=== PATIENT | female | born 1970 | race Caucasian/White ===

== ENCOUNTER 2017-11-11 21:26 | Emergency (ER) | payer OTHER, BC ==
[~2017-11-11] VITALS: Ht 157.5 cm; Wt 99.8 kg
[~2017-11-11 21:26] MED LIST: BCPs; CIPR500 PO; CITA20 PO; DULO30; ESCI10 PO; ESCI20; HYDACE5 PO; Keflex500 MG PO; NAPR500EC PO; OMEP20ER PO; PHENA200 PO; RISE5; SULTRIDS PO
[2017-11-11] MEDS ORDERED: LEVSOD75 PO (21:44)
[2017-11-11 22:14] LABS: Source, Urine Clean Catch
[2017-11-11 22:17] LABS: Bilirubin, Urine Neg (Neg); Blood, Urine 2+ (Neg); Glucose Qualitative, Urine Neg (Neg); Ketones, Urine 1+ (Neg); Leukocyte Esterase, Urine 1+ (Neg); Nitrite, Urine Neg (Neg); Protein, Urine 1+ (Neg); Urobilinogen, Urine 1+ (Normal)
[2017-11-11 22:20] LABS: Appearance, Urine Hazy (Clear); Color, Urine Yellow (P-Yellow)
[2017-11-11 22:27] LABS: White Blood Cells, Urine 50-100 /hpf (0-5)
[2017-11-11 22:28] LABS: Bacteria Few /hpf; Red Blood Cells, Urine 0-2 /hpf (0-2); Squamous Epithelial Cells Few /hpf (Few)
[2017-11-11] MEDS ORDERED: Cipro250 MG PO (22:52)
[2017-11-11] MEDS ORDERED: Pyridium100 MG PO (22:52)
== END 2017-11-11 22:58 | disposition home or self-care (01) ==
LOC: ER 21:26
PROVIDERS: Emergency Medicine
DX: N30.00 Acute cystitis without hematuria (principal); F32.9 Major depressive disorder, single episode, unspecified; Z88.0 Allergy status to penicillin; Z88.6 Allergy status to analgesic agent; Z88.1 Allergy status to other antibiotic agents; Z79.899 Other long term (current) drug therapy
CPT/HCPCS: 81001; 81025; 87077; 87086; 87186; 99283

== ENCOUNTER → 2018-03-26 | Outpatient (CLI) | payer OTHER ==
[~2018-03-26] MED LIST changes: +Cipro250 MG PO; +LEVSOD75 PO; +Pyridium100 MG PO
== END | disposition home or self-care (01) ==
LOC: LAB SHORT 18:44 → LAB EV 18:44
DX: N39.0 Urinary tract infection, site not specified (principal)
CPT/HCPCS: 87077; 87086; 87186

== ENCOUNTER 2018-11-14 11:50 | Emergency (ER) | payer OTHER ==
[~2018-11-14] VITALS: Ht 157.5 cm; Wt 95.2 kg
[2018-11-14 12:34] LABS: BASOPHILS ABSOLUTE AUTO 0.03 K/mm3 (0.00-0.23); BASOPHILS PERCENT AUTO 0 % (0-2); EOSINOPHILS ABSOLUTE AUTO 0.15 K/mm3 (0.00-0.68); EOSINOPHILS PERCENT AUTO 2 % (0-6); Hematocrit 38.1 % (33.0-51.0); Hemoglobin 12.5 g/dL (11.5-16.0); IMMATURE GRAN ABSOLUTE AUTO 0.03 K/mm3 (0.00-0.10); IMMATURE GRAN PERCENT AUTO 0 % (0-1); LYMPHOCYTES ABSOLUTE AUTO 2.66 K/mm3 (0.84-5.20); LYMPHOCYTES PERCENT AUTO 36 % (21-46); MONOCYTES ABSOLUTE AUTO 0.49 K/mm3 (0.16-1.47); MONOCYTES PERCENT AUTO 7 % (4-13); Mean Corpuscular HGB 29.1 pg (26.0-34.0); Mean Corpuscular HGB Conc 32.8 g/dL (31.5-36.5); Mean Corpuscular Volume 89 fL (80-100); Mean Platelet Volume 9.9 fL (9.1-12.4); NEUTROPHILS ABSOLUTE AUTO 4.11 K/mm3 (1.96-9.15); NEUTROPHILS PERCENT AUTO 55 % (41-73); Platelet Count 240 K/mm3 (150-400); RDW Coefficient Variation 13.3 % (11.7-14.2); Red Blood Cell Count 4.29 M/mm3 (3.80-5.20); White Blood Cell Count 7.47 K/mm3 (4.00-11.30)
[2018-11-14 13:10] LABS: Alanine Aminotransfer (ALT/SGP 58 U/L (12-78); Albumin, Blood 3.7 g/dL (3.4-5.0); Albumin/Globulin Ratio 1.1 (0.8-1.8); Alk Phos 92 U/L (50-136); Anion Gap 6 mmol/L (6-16); Aspartate Aminotrans (AST/SGOT 29 U/L (12-37); Bilirubin, Total 0.2 mg/dL (0.1-1.0); Blood Urea Nitrogen 10 mg/dL (8-24); CO2, Blood 26 mmol/L (21-32); Calcium, Blood 8.2 mg/dL (8.5-10.1); Chloride, Blood 110 mmol/L (98-108); Creatinine, Blood 0.59 mg/dL (0.40-1.00); Globulin, Blood 3.5 g/dL (2.2-4.0); Glomerular Filtration Rate >60 (60-); Glucose, Blood 76 mg/dL (70-99); Potassium, Blood 3.6 mmol/L (3.5-5.5); Sodium, Blood 142 mmol/L (136-145); Total Protein, Blood 7.2 g/dL (6.4-8.2); Troponin I <0.015 ng/mL (0.000-0.040)
== END 2018-11-14 16:28 | disposition home or self-care (01) ==
LOC: ER 11:50
PROVIDERS: Emergency Medicine
DX: R07.89 Other chest pain (principal); L50.9 Urticaria, unspecified; F32.9 Major depressive disorder, single episode, unspecified; Z88.0 Allergy status to penicillin; Z88.8 Allergy status to other drugs, medicaments and biological substances; Z88.1 Allergy status to other antibiotic agents; Z79.899 Other long term (current) drug therapy
CPT/HCPCS: 36415; 71046; 80053; 83690; 84484; 85025; 93005; 93010; 99284-25

== ENCOUNTER → 2018-12-15 | Outpatient (CLI) | payer OTHER | END | disposition home or self-care (01) | LOC: LAB EV 16:15 → LAB SHORT 16:15 | DX: N39.0 Urinary tract infection, site not specified (principal) | CPT/HCPCS: 87077; 87086; 87186 ==

== ENCOUNTER 2020-01-21 09:23 | Day surgery (SDC) | payer OTHER ==
[~2020-01-21] VITALS: Ht 157.5 cm; Wt 96.8 kg
[~2020-01-21 09:23] MED LIST changes: +METF500 PO
--- NOTE | 2020-01-21 12:46 | NUR ---
01/21/20 1246 Bharti Gonzalez LATE ENTRY: INCOMPLETE COLONOSCOPY DUE TO POOR PREP.
== END 2020-01-21 11:32 | disposition home or self-care (01) ==
LOC: ORSCSDS 09:23
PROVIDERS: Internal Medicine Gastroenterology
PROC: 0DJD8ZZ Inspection of Lower Intestinal Tract, Via Natural or Artificial Opening Endoscopic (ICD-10-PCS; principal; 2020-01-21 10:45)
DX: Z12.11 Encounter for screening for malignant neoplasm of colon (principal); F32.9 Major depressive disorder, single episode, unspecified; Z79.899 Other long term (current) drug therapy
CPT/HCPCS: 82947; J2405; J2704; J7120

== ENCOUNTER 2020-02-14 16:22 | Emergency (ER) | payer OTHER ==
[~2020-02-14] VITALS: Ht 157.5 cm; Wt 99.8 kg
[2020-02-14 16:55] LABS: BASOPHILS ABSOLUTE AUTO 0.03 K/mm3 (0.00-0.23); BASOPHILS PERCENT AUTO 0 % (0-2); EOSINOPHILS ABSOLUTE AUTO 0.11 K/mm3 (0.00-0.68); EOSINOPHILS PERCENT AUTO 1 % (0-6); Hemoglobin 12.7 g/dL (11.5-16.0); IMMATURE GRAN ABSOLUTE AUTO 0.02 K/mm3 (0.00-0.10); IMMATURE GRAN PERCENT AUTO 0 % (0-1); LYMPHOCYTES PERCENT AUTO 34 % (21-46); MONOCYTES ABSOLUTE AUTO 0.56 K/mm3 (0.16-1.47); MONOCYTES PERCENT AUTO 7 % (4-13); Mean Corpuscular HGB 28.9 pg (26.0-34.0); Mean Corpuscular HGB Conc 32.6 g/dL (31.5-36.5); Mean Corpuscular Volume 89 fL (80-100); Mean Platelet Volume 9.8 fL (9.1-12.4); NEUTROPHILS ABSOLUTE AUTO 4.71 K/mm3 (1.96-9.15); NEUTROPHILS PERCENT AUTO 57 % (41-73); NRBC ABSOLUTE 0.02 K/mm3 (0.00-0.02); NRBC Auto 0.2 /100 WBC (0.0-0.2); Platelet Count 364 K/mm3 (150-400); RDW Coefficient Variation 13.3 % (11.7-14.2); RDW Standard Deviation 43.4 fL (35.1-46.3); Red Blood Cell Count 4.39 M/mm3 (3.80-5.20); White Blood Cell Count 8.23 K/mm3 (4.00-11.30)
[2020-02-14 17:11] LABS: Alanine Aminotransfer (ALT/SGP 80 U/L (12-78); Albumin, Blood 3.9 g/dL (3.4-5.0); Albumin/Globulin Ratio 1.1 (0.8-1.8); Alk Phos 89 U/L (50-136); Anion Gap 8 mmol/L (6-16); Aspartate Aminotrans (AST/SGOT 48 U/L (12-37); Bilirubin, Total 0.5 mg/dL (0.1-1.0); Blood Urea Nitrogen 9 mg/dL (8-24); Bun/Creatinine Ratio 14.5 (12.0-20.0); CO2, Blood 23 mmol/L (21-32); Chloride, Blood 106 mmol/L (98-108); Creatinine, Blood 0.62 mg/dL (0.40-1.00); Globulin, Blood 3.7 g/dL (2.2-4.0); Glomerular Filtration Rate >60 (60-); Glucose, Blood 88 mg/dL (70-99); Potassium, Blood 3.8 mmol/L (3.5-5.5); Sodium, Blood 137 mmol/L (136-145); Total Protein, Blood 7.6 g/dL (6.4-8.2)
[2020-02-14 17:38] LABS: Source, Urine Clean Catch
[2020-02-14 17:43] LABS: Appearance, Urine Hazy (Clear); Bilirubin, Urine Neg (Neg); Blood, Urine Neg (Neg); Color, Urine Yellow (P-Yellow); Glucose Qualitative, Urine Neg (Neg); Ketones, Urine 2+ (Neg); Leukocyte Esterase, Urine Neg (Neg); Nitrite, Urine Neg (Neg); Protein, Urine Neg (Neg); Specific Gravity, Urine 1.005 (1.003-1.022); Urobilinogen, Urine NORM (Normal)
[2020-02-14 17:52] LABS: Bacteria Rare /hpf; Red Blood Cells, Urine 0-2 /hpf (0-2); Squamous Epithelial Cells Many /hpf (Few); White Blood Cells, Urine 0-2 /hpf (0-5)
[2020-02-14] MEDS ORDERED: PROG100 PO (18:16)
[2020-02-14] MEDS ORDERED: Nitrofurantoin100 M1 PO (18:16)
[2020-02-14] MEDS ORDERED: SPIRONOLACTONE50 MG PO (18:16)
[2020-02-14] MEDS ORDERED: METF500 (18:17)
[2020-02-14] MEDS ORDERED: LEVO-T88 MC1 PO (18:18)
[2020-02-14] MEDS ORDERED: CITALOPRAM HBR20 MG PO (18:18)
== END 2020-02-14 22:32 | disposition home or self-care (01) ==
LOC: ER 16:22
PROVIDERS: Physician Assistant
DX: K43.9 Ventral hernia without obstruction or gangrene (principal); R94.5 Abnormal results of liver function studies; K80.80 Other cholelithiasis without obstruction; F32.9 Major depressive disorder, single episode, unspecified; Z88.0 Allergy status to penicillin; Z88.8 Allergy status to other drugs, medicaments and biological substances; Z79.84 Long term (current) use of oral hypoglycemic drugs; Z79.899 Other long term (current) drug therapy
CPT/HCPCS: 36415; 74177; 76705; 80053; 81001; 83605; 83690; 85025; 96360-59; 96361-59; 99284-25; J7030; Q9967

== ENCOUNTER 2020-03-25 06:59 | Day surgery (SDC) | payer OTHER ==
[~2020-03-25] VITALS: Ht 157.5 cm; Wt 96.2 kg
[~2020-03-25 06:59] MED LIST changes: +CITALOPRAM HBR20 MG PO; +Estrace Vagin42.5 GM VAG; +LEVO-T88 MC1 PO; +NITR100CA PO; +Nitrofurantoin100 M1 PO; +PROG100 PO; +SPIRONOLACTONE50 MG PO
--- NOTE | 2020-03-25 08:30 | NUR ---
Ambulatory in Day Surgery History, Chart, Medications and Allergies reviewed before start of procedure. Lungs clear T/O to Auscultation. Pre-Op teaching done. Pt verbalizes understanding.
--- NOTE | 2020-03-25 11:54 | NUR ---
ASSUMED CARE AND RECEIVED REPORT FROM PADMINI JUAREZ RN. PT AWAKE AND ORIENTED. PAINFUL. GAVE ANOTHER PERCOCET. Discharge instructions reviewed with patient. Patient verbalizes understanding. Copy given to patient to take home. procedure site clean, dry, intact with no visible drainage, swelling, erythema or bruising noted.
--- NOTE | 2020-03-25 12:33 | NUR ---
Discharged via wheelchair to private car for ride home. Patient States Post-Procedure ride home has been arranged. ALL BELONINGS RETURNED TO PATIENT. INCISION REMAINED CDI. PT RECEIVED TWO PAIN PILLS.
== END 2020-03-25 22:47 | disposition home or self-care (01) ==
LOC: ORSCMMR 06:59 → ORD 08:30 → ORSCMMR 08:30
PROVIDERS: Surgery
PROC: 0WUF4JZ Supplement Abdominal Wall with Synthetic Substitute, Percutaneous Endoscopic Approach (ICD-10-PCS; principal; 2020-03-25 08:30)
DX: K42.9 Umbilical hernia without obstruction or gangrene (principal); K21.9 Gastro-esophageal reflux disease without esophagitis; E66.01 Morbid (severe) obesity due to excess calories; Z68.38 Body mass index [BMI] 38.0-38.9, adult; E03.9 Hypothyroidism, unspecified; Z79.899 Other long term (current) drug therapy
CPT/HCPCS: 82947; A9270; C1781; J0330; J0690; J2250; J2405; J2710; J3010; J7120

== ENCOUNTER 2024-03-26 06:11 | Day surgery (SDC) | payer OTHER ==
[~2024-03-26] VITALS: Ht 157.5 cm; Wt 97.6 kg
[2024-03-26] VITALS (17 sets, daily range): BP systolic 67–119; BP diastolic 31–79
[~2024-03-26 06:11] MED LIST changes: +CLIMARA1 EACH TOP
[2024-03-26] MEDS ORDERED: Ropivacaine 0.5% HCl/Pf 123.125 MG,EPINEPHrine HCL 0.25 MG,Ketorolac Tromethamine 15 MG... INFIL SCH (06:20)
[2024-03-26] MEDS ORDERED: Tranexamic Acid 100 ML IV SCH (06:20)
[2024-03-26] MEDS ORDERED: Chlorhexidine Mouth Care 15 ML UDC MT SCH (06:20)
[2024-03-26] MEDS ORDERED: CeFAZolin Sodium 2,000 MG in NS 100 ML IV SCH ×2 (06:20→16:00)
[2024-03-26] MEDS ORDERED: Lactated Ringer's 1,000 ML IV SCH ×2 (06:20→09:45)
[2024-03-26] MEDS ORDERED: Acetaminophen 500 MG Tab PO SCH ×2 (06:20→16:00)
[2024-03-26] MEDS ORDERED: OxyCODONE HCL 10 MG TABCR PO SCH (06:20)
[2024-03-26] MEDS ORDERED: Midazolam HCl 1MG / ML 2ML Vial ONE (06:46)
[2024-03-26] MEDS ORDERED: propofoL 60 ML IV ONE (06:46)
[2024-03-26] MEDS ORDERED: FentaNYL Citrate 50 MCG/ML 2 ML Injection ONE (06:46)
[2024-03-26] MEDS ORDERED: CeFAZolin Sodium 2,000 MG VIAL ONE (06:57)
--- NOTE | 2024-03-26 07:12 | NUR ---
History, Chart, Medications and Allergies reviewed before start of procedure. Pre-Op teaching done. Pt verbalizes understanding. Patient confirms NPO status and agrees with scheduled surgery. PT GAVE BELONGINGS BAG TO SPOUSE, PAUL, AT BS.
[2024-03-26] MEDS ORDERED: ePHEDrine Sulfate 50 MG/ML 1ML Injection ONE (07:43)
[2024-03-26] MEDS ORDERED: Glycopyrrolate 0.2 MG/ML 5ML VIAL ONE (07:53)
--- NOTE | 2024-03-26 08:13 | NUR ---
03/26/24 0813 Miguelina Linn SPINAL BLOCK COMPLETED BY UPON ENTRY TO OR.
[2024-03-26] MEDS ORDERED: propofoL 20 ML IV ONE (08:52)
[2024-03-26] MEDS ORDERED: Nitrofurantoin/Nitrofuran Mac 100 MG Cap PO PRN (09:30)
[2024-03-26] MEDS ORDERED: DiphenhydrAMINE HCL 25 MG Cap PO PRN (09:35)
[2024-03-26] MEDS ORDERED: FLU VACC TS2024-25(6MOS UP)/PF 45 MCG/0.5 ML SYRINGE IM SCH (09:35)
[2024-03-26] MEDS ORDERED: Promethazine HCl 25 MG Tab PO PRN (09:35)
[2024-03-26] MEDS ORDERED: HYDROmorphone HCl/Pf 1MG SYR IV PRN (09:35)
[2024-03-26] MEDS ORDERED: Bisacodyl 10 MG Supp PR PRN (09:35)
[2024-03-26] MEDS ORDERED: Metoclopramide HCl 5MG / ML 2ML Vial IV PRN (09:40)
[2024-03-26] MEDS ORDERED: OxyCODONE HCL 5 MG TAB PO PRN ×2 (09:40)
[2024-03-26] MEDS ORDERED: Prochlorperazine Edisylate 10 mg Vial IV PRN (09:40)
[2024-03-26] MEDS ORDERED: Ondansetron HCl 2 MG / ML 2ML Vial IV PRN (09:40)
[2024-03-26] MEDS ORDERED: Magnesium Hydroxide Conc 10 ML UDC PO PRN (09:45)
[2024-03-26] MEDS ORDERED: Insulin Regular 100 UNIT/ML 10ML Vial SC SCH (11:30)
[2024-03-26] MEDS ORDERED: Ketorolac Tromethamine 15mg Vial IV SCH (12:00)
[2024-03-26] MEDS ORDERED: Omeprazole 20 MG CapCR PO ONE (13:50)
[2024-03-26] MEDS ORDERED: MetFORMIN HCl 500 mg PO SCH (17:00)
--- NOTE | 2024-03-26 18:18 | NUR ---
SHIFT SUMMARY PT HAS DONE WELL POST OP. HAD ONE EPISODE OF DIZZINESS w/ HYPOTENSION ON FIRST AMBULATION TO BATHROOM BUT RECOVERED WELL. EATING, DRINKING, VOIDING, & WORKED w/ THERAPY. PAIN WELL CONTROLLED.
[2024-03-26] MEDS ORDERED: Docusate Sodium 100 MG Cap PO SCH (21:00)
[2024-03-26] MEDS ORDERED: Progesterone, Micronized 100 MG Cap PO SCH (21:00)
[2024-03-27 00:20] VITALS: BP 106/54
[2024-03-27 03:18] VITALS: BP 100/60
--- NOTE | 2024-03-27 04:44 | NUR ---
SHIFT SUMMARY POD 1 S/P RIGHT AIDEN. AQUACEL AND DARREL WRAP CDI. PAIN MANAGED WITH PO MEDICATION PER EMAR, ICE THERAPY AND REPOSITIONING. RAJIV PO INTAKE, DENIES N/V. ABX INFUSED PER ORDERS. VOIDING. AMBULATING IN HALLWAYS WITH FWW, GB, AND SBA. PLAN TO WORK WITH THERAPY AND D/C HOME TODAY. WILL GIVE REPORT TO ONCOMING RN.
[2024-03-27 05:18] VITALS: BP 99/60
[2024-03-27 05:35] LABS: BASOPHILS ABSOLUTE AUTO 0.01 K/mm3 (0.00-0.23); BASOPHILS PERCENT AUTO 0 % (0-2); EOSINOPHILS PERCENT AUTO 0 % (0-6); Hematocrit 30.6 % (33.0-51.0); Hemoglobin 9.9 g/dL (11.5-16.0); IMMATURE GRAN ABSOLUTE AUTO 0.03 K/mm3 (0.00-0.10); IMMATURE GRAN PERCENT AUTO 0 % (0-1); LYMPHOCYTES PERCENT AUTO 10 % (21-46); MONOCYTES ABSOLUTE AUTO 0.55 K/mm3 (0.16-1.47); MONOCYTES PERCENT AUTO 6 % (4-13); Mean Corpuscular HGB 30.1 pg (26.0-34.0); Mean Corpuscular HGB Conc 32.4 g/dL (31.5-36.5); Mean Corpuscular Volume 93 fL (80-100); Mean Platelet Volume 10.1 fL (9.1-12.4); NEUTROPHILS ABSOLUTE AUTO 8.23 K/mm3 (1.96-9.15); NEUTROPHILS PERCENT AUTO 84 % (41-73); Platelet Count 210 K/mm3 (150-400); RDW Coefficient Variation 13.2 % (11.7-14.2); Red Blood Cell Count 3.29 M/mm3 (3.80-5.20); White Blood Cell Count 9.82 K/mm3 (4.00-11.30)
[2024-03-27] MEDS ORDERED: Omeprazole 20 MG CapCR PO SCH (06:00)
[2024-03-27] MEDS ORDERED: Levothyroxine Sodium 0.088 MG Tab PO SCH (06:00)
[2024-03-27 06:11] LABS: Bun/Creatinine Ratio 19.7 (12.0-20.0); Calcium, Blood 8.1 mg/dL (8.5-10.1); Creatinine, Blood 0.56 mg/dL (0.40-1.00)
[2024-03-27 07:24] VITALS: BP 102/58
[2024-03-27] MEDS ORDERED: ASPI81CH PO (08:59)
[2024-03-27] MEDS ORDERED: Aspirin 81 MG Chew PO SCH (09:00)
--- NOTE | 2024-03-27 10:57 | NUR ---
SHIFT SUMMARY POD 1 RTHA PT AMBULATED WELL WITH THERAPY. PAIN CONTROLLED PER EMAR. VOIDING, TOLERATING DIET. ALL INSTRUCTIONS GONE OVER WITH PATIENT. DRESSING SENT WITH PATIENT. ESCORTED OUT VIA WHEELCHAIR.
[2024-03-28] MEDS ORDERED: Estradiol 0.025 MG/24 Patch TOP SCH (09:00)
== END 2024-03-27 09:29 | disposition home or self-care (01) ==
LOC: ORSCMMR 06:11 → ORD 07:30 → ORSCMMR 07:30 → SURS 09:57 → ORSCMMR 03-27 09:29
PROVIDERS: Orthopaedic Surgery
PROC: 0SR90JZ Replacement of Right Hip Joint with Synthetic Substitute, Open Approach (ICD-10-PCS; principal; 2024-03-26 07:30)
DX: M16.11 Unilateral primary osteoarthritis, right hip (principal); E11.9 Type 2 diabetes mellitus without complications; E03.9 Hypothyroidism, unspecified; K21.9 Gastro-esophageal reflux disease without esophagitis; E66.01 Morbid (severe) obesity due to excess calories; Z68.39 Body mass index [BMI] 39.0-39.9, adult; Z79.84 Long term (current) use of oral hypoglycemic drugs; Z79.899 Other long term (current) drug therapy
CPT/HCPCS: 36415; 72170; 80048; 82947; 85025; 97110; 97116; 97162; A6010; A9270; C1776; J0171; J0690; J0735; J1885; J2250; J2704; J2795; J3010; J7120